=== PATIENT | male | born 1955 | race Caucasian/White ===

== ENCOUNTER 2019-09-26 18:49 | Emergency (ER) | payer OTHER ==
[~2019-09-26] VITALS: Ht 195.6 cm; Wt 113.9 kg
[2019-09-26 20:00] VITALS: Ht 195.6 cm; Wt 113.9 kg
[2019-09-26 20:39] LABS: microscopic required? YES; urine erythrocyte NEGATIVE (NEGATIVE)
[2019-09-26 20:41] LABS: BASOPHIL % 0.9 % (0-2); PLATELET COUNT 251 x10^3mcL (130-400); RED CELL DISTRIBUTION WIDTH 17.4 % (11.5-14.5)
[2019-09-26 20:49] LABS: CALCIUM 9.2 mg/dL (8.5-10.1); CARBON DIOXIDE 27.9 mmol/L (21-32); CHLORIDE SERUM 105 mmol/L (98-107); CREATININE SERUM 0.8 mg/dL (0.7-1.3); GFR1 > 60 mL/min; GLUCOSE SERUM 98 mg/dL (74-106); POTASSIUM SERUM 3.4 mmol/L (3.5-5.1); SODIUM SERUM 142 mmol/L (136-145)
[2019-09-26 20:54] LABS: ALKALINE PHOSPHATASE 125 U/L (46-116); ALT/SGPT 33 U/L (16-63); AST/SGOT 16 U/L (15-37); BILIRUBIN TOTAL 0.4 mg/dL (0.20-1.00); TOTAL PROTEIN, SERUM 6.9 g/dL (6.4-8.2)
[2019-09-27 00:13] VITALS: BP 114/72
== END 2019-09-27 00:13 | disposition home or self-care (01) ==
LOC: ED 18:49
PROVIDERS: Emergency Medicine
DX: R33.9 Retention of urine, unspecified (principal); N39.0 Urinary tract infection, site not specified; G82.20 Paraplegia, unspecified
CPT/HCPCS: 36415; C1758; Q0092